=== PATIENT | female | born 1990 | race Two or more races ===

== ENCOUNTER 2017-06-29 19:18 | Emergency (ER) | payer SELFPAY ==
[~2017-06-29] VITALS: Ht 170.2 cm; Wt 84.0 kg
[2017-06-29 23:35] VITALS: BP 120/64
== END 2017-06-30 00:50 | disposition home or self-care (01) ==
LOC: ER 19:18
DX: N76.4 Abscess of vulva (principal)
CPT/HCPCS: 99283

== ENCOUNTER 2017-07-14 14:04 | Emergency (ER) | payer MEDICAID ==
[~2017-07-14] VITALS: Ht 170.2 cm; Wt 75.0 kg
[2017-07-14] MEDS ORDERED: ACETAMINOPHEN 325MG TABLET PO STA (15:46)
[2017-07-14 17:20] VITALS: BP 111/66
== END 2017-07-14 17:54 | disposition home or self-care (01) ==
LOC: ER 14:20
DX: S00.03XA Contusion of scalp, initial encounter (principal); S00.12XA Contusion of left eyelid and periocular area, initial encounter; V49.88XA Car occupant (driver) (passenger) injured in other specified transport accidents, initial encounter; Y93.89 Activity, other specified; Y99.8 Other external cause status; Y92.410 Unspecified street and highway as the place of occurrence of the external cause
CPT/HCPCS: 70450; 70486; 81025; 99284